=== PATIENT | female | born 1975 | race Caucasian/White ===

== ENCOUNTER 2016-10-05 06:23 | Inpatient (IN) | payer OTHER ==
[~2016-10-05] VITALS: Ht 154.9 cm; Wt 77.6 kg
[~2016-10-05 06:23] MED LIST: PROZAC20 MG PO; ZYRTEC10 M3 PO
[2016-10-05 07:25] VITALS: BP 141/97
[2016-10-05 13:35] LABS: HEMATOCRIT 34.9 % (36.0-46.0); MCH 28.5 PG (29.0-34.0); MCHC 32.7 G/DL (30.0-36.0); MCV 87.3 FL (83-99); MEAN PLAT.VOLUME 9.9 uM^3 (9.5-12.4); PLATELET COUNT 257 K/uL (156-360); RBC DIS.WIDTH-CV 15.8 % (11.8-14.6); RBC DIS.WIDTH-SD 49.5 % (39-53); WHITE BLOOD COUNT 18.2 K/uL (4.1-10.2)
[2016-10-05 14:08] LABS: ANION GAP 12 MEQ/L (2-14); CHLORIDE 102 MEQ/L (99-109); GFR ESTIMATE (CALCULATED) > 59 mL/min/; GLUCOSE 156 mg/dL (70-99); POTASSIUM 3.9 MEQ/L (3.7-5.4); SAMPLE HEMOLYSIS CHECK 0; SAMPLE ICTERIC CHECK 0; SAMPLE LIPEMIA CHECK 0; SODIUM 136 MEQ/L (136-147); UREA NITROGEN (BUN) 5 mg/dL (9-23)
[2016-10-05 15:20] VITALS: BP 125/96
[2016-10-05 15:59] LABS: HEMATOCRIT 34.8 % (36.0-46.0); MCH 27.5 PG (29.0-34.0); MCHC 31.6 G/DL (30.0-36.0); MEAN PLAT.VOLUME 9.8 uM^3 (9.5-12.4); PLATELET COUNT 275 K/uL (156-360); RBC DIS.WIDTH-CV 15.7 % (11.8-14.6); WHITE BLOOD COUNT 16.8 K/uL (4.1-10.2)
[2016-10-05 16:21] LABS: ANION GAP 10 MEQ/L (2-14); CHLORIDE 101 MEQ/L (99-109); GFR ESTIMATE (CALCULATED) > 59 mL/min/; GLUCOSE 153 mg/dL (70-99); POTASSIUM 4.2 MEQ/L (3.7-5.4); SAMPLE HEMOLYSIS CHECK 0; SAMPLE ICTERIC CHECK 0; SAMPLE LIPEMIA CHECK 0; SODIUM 135 MEQ/L (136-147); UREA NITROGEN (BUN) 5 mg/dL (9-23)
[2016-10-05 20:06] VITALS: BP 121/84
[2016-10-06 00:15] VITALS: BP 141/93
[2016-10-06 06:41] LABS: HEMATOCRIT 30.2 % (36.0-46.0); MCH 27.9 PG (29.0-34.0); MCHC 31.5 G/DL (30.0-36.0); MCV 88.6 FL (83-99); PLATELET COUNT 240 K/uL (156-360); RBC DIS.WIDTH-CV 15.7 % (11.8-14.6); RBC DIS.WIDTH-SD 49.7 % (39-53); RED BLOOD COUNT 3.41 M/uL (3.80-5.20); WHITE BLOOD COUNT 17.1 K/uL (4.1-10.2)
[2016-10-06 06:50] VITALS: BP 141/86
[2016-10-06 07:03] LABS: ANION GAP 7 MEQ/L (2-14); CHLORIDE 98 MEQ/L (99-109); GFR ESTIMATE (CALCULATED) > 59 mL/min/; POTASSIUM 3.6 MEQ/L (3.7-5.4); SAMPLE HEMOLYSIS CHECK 0; SAMPLE ICTERIC CHECK 0; SAMPLE LIPEMIA CHECK 0; SODIUM 133 MEQ/L (136-147); UREA NITROGEN (BUN) 3 mg/dL (9-23)
[2016-10-06 07:04] LABS: GLUCOSE 101 mg/dL (70-99)
[2016-10-06 12:26] VITALS: BP 156/96
[2016-10-06 15:37] VITALS: BP 155/96
[2016-10-06 18:31] VITALS: BP 138/83
[2016-10-06 18:59] LABS: HEMATOCRIT 28.2 % (36.0-46.0); MCH 28.3 PG (29.0-34.0); MCHC 32.3 G/DL (30.0-36.0); MCV 87.9 FL (83-99); MEAN PLAT.VOLUME 10.1 uM^3 (9.5-12.4); PLATELET COUNT 208 K/uL (156-360); RBC DIS.WIDTH-CV 16.2 % (11.8-14.6); RBC DIS.WIDTH-SD 51.1 % (39-53); RED BLOOD COUNT 3.21 M/uL (3.80-5.20); WHITE BLOOD COUNT 14.2 K/uL (4.1-10.2)
[2016-10-06 23:48] VITALS: BP 140/80
[2016-10-07 04:14] VITALS: BP 181/95
[2016-10-07 04:16] VITALS: BP 158/91
[2016-10-07 07:23] VITALS: BP 125/87
[2016-10-07 08:01] LABS: HEMATOCRIT 26.9 % (36.0-46.0); MCH 28.6 PG (29.0-34.0); MCHC 32.7 G/DL (30.0-36.0); MCV 87.3 FL (83-99); MEAN PLAT.VOLUME 10.1 uM^3 (9.5-12.4); PLATELET COUNT 180 K/uL (156-360); RBC DIS.WIDTH-CV 16.3 % (11.8-14.6); RBC DIS.WIDTH-SD 50.4 % (39-53); RED BLOOD COUNT 3.08 M/uL (3.80-5.20); WHITE BLOOD COUNT 12.6 K/uL (4.1-10.2)
[2016-10-07 08:32] LABS: ANION GAP 9 MEQ/L (2-14); CHLORIDE 104 MEQ/L (99-109); GFR ESTIMATE (CALCULATED) > 59 mL/min/; GLUCOSE 104 mg/dL (70-99); POTASSIUM 3.4 MEQ/L (3.7-5.4); SAMPLE HEMOLYSIS CHECK 0; SAMPLE ICTERIC CHECK 0; SAMPLE LIPEMIA CHECK 0; SODIUM 139 MEQ/L (136-147); UREA NITROGEN (BUN) 4 mg/dL (9-23)
[2016-10-07] MEDS ORDERED: TRAMADOL HCL50 MG PO (09:25)
== END 2016-10-07 11:37 | disposition home or self-care (01) | DRG 743 ==
LOC: 2SOUTH 06:23 → 2EASTP 15:12
PROVIDERS: Obstetrics & Gynecology Gynecologic Oncology
DX: N83.201 Unspecified ovarian cyst, right side (principal); D25.9 Leiomyoma of uterus, unspecified; N80.1 Endometriosis of ovary; N80.3 Endometriosis of pelvic peritoneum; N87.9 Dysplasia of cervix uteri, unspecified; N93.8 Other specified abnormal uterine and vaginal bleeding; E53.8 Deficiency of other specified B group vitamins; L40.9 Psoriasis, unspecified; K21.9 Gastro-esophageal reflux disease without esophagitis; F17.210 Nicotine dependence, cigarettes, uncomplicated; E66.3 Overweight; Z68.30 Body mass index [BMI] 30.0-30.9, adult
CPT/HCPCS: 36415; 80048; 80048 91; 85027; 86900; 86901; 86920; 88305; 88307; J0131; J0690; J1100; J1170; J1650; J1885; J2060; J2250; J2405; J2710; J2765; J3010